=== PATIENT | female | born 1990 ===

== ENCOUNTER 2017-05-31 09:27 | Day surgery (SDC) | payer OTHER ==
[2017-05-27 08:49] VITALS: BMI 26.5
[2017-05-31] MEDS ORDERED: Propofol 10 mg/ml Inj (20 ML) ONE (12:07)
[2017-05-31] MEDS ORDERED: Lidocaine Hydrochloride 5 ML INJ ONE (12:43)
[2017-05-31] MEDS ORDERED: Midazolam 2 MG/2 ML VIAL ONE (12:44)
[2017-05-31] MEDS ORDERED: Lidocaine 1% Inj (20ml) ONE (12:50)
[2017-05-31] MEDS ORDERED: Bupivacaine 0.25% Inj(30mL) ONE (12:50)
[2017-05-31] MEDS ORDERED: ceFAZolin IV 1 gm in Dextrose 1 GM/50 ML BAG IVPB ONE (12:50)
[2017-05-31] MEDS ORDERED: Oxycodone/Acetaminophen 5/325 mg Tab PO PRN (13:31)
[2017-05-31] MEDS ORDERED: HYDROmorphone 0.5 mg/0.5 ml ISec IVP PRN (13:35)
[2017-05-31 14:56] VITALS: BP 103/65; PULSE 71; RESP 18; TEMP 97; O2SAT 100
--- NOTE | 2017-06-01 20:49 | OP ---
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 PROCEDURE PERFORMED: 1. Wide deep excision (radical resection) of 3 cm neoplasm of the left great toe (78230). 2. Repair of digital blood vessel (38627). 3. Adjacent tissue transfer closure of 28 cm2 (14966). 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 She presents with a new mass on her left great toe suspicious for a neoplasm and will undergo a wide deep excision. DESCRIPTION OF PROCEDURE: The patient was taken to the operating room, general anesthesia was administered and the left foot was prepped and draped. A generous elliptical incision was made on dorsal surface of the toe overlying the mass. The mass was dissected free into the fascial layer of the toe and completely removed. Bleeding was controlled using the Bovie. A digital blood vessel which was bleeding profusely was repaired with 6-0 Prolene and flow-by Doppler was determined. Next, an adjacent tissue transfer closure of approximately 28 cm2 was performed by widely mobilizing the tissue flaps using the Bovie and using multiple layers of heavy Monocryl, subcuticular Monocryl, and glue. The patient tolerated the procedure well and returned to recovery room in a stable condition. Won Waddell MD
== END 2017-05-31 15:18 | disposition home or self-care (01) ==
LOC: C.SDS 09:27
PROVIDERS: ATTEND Surgery
DX: L72.0 Epidermal cyst (principal); L98.8 Other specified disorders of the skin and subcutaneous tissue
CPT/HCPCS: 11423; 88305; J0690; J2250; J2405; J2704; J3010